=== PATIENT | female | born 1965 | race Hispanic/Latino ===

== ENCOUNTER 2025-01-20 17:00 | Emergency (ER) | payer OTHER, SELFPAY ==
--- NOTE | ~2025-01-20 | CT_ITS ---
EXAMINATION: CT diagnostic chest wo con DATE: 01/20/2025 20:24 INDICATION: Anterior rib pain, bilateral upper ribs TECHNIQUE: Computed tomography (CT) of the chest was performed with 100 mL Omnipaque-350 intravenous contrast. Automated exposure control and iterative reconstruction technique were employed. The dose-l ength product was 244.58 mGy-cm. COMPARISON: None. FINDINGS: CHEST: Thoracic aorta: No significant dilation or calcification. Lung parenchyma and airways: Lingular, medial right middle lobe, and medial right lower lobe atelecta sis/scar. Patent airways. Thoracic inlet, axillae and chest wall: 1 26 cm left thyroid hypodensity. No axillary lymphadenopathy . Mediastinum: No mass or lymphadenopathy. Heart and pericardium: Normal heart size. No pericardial effusion. Coronary artery calcifications: Absent. Pleura: No effusion or mass. Upper abdomen: No significant finding. Thoracic bones: Oblique sternal body fracture with one cortical width posterior displacement, possibl e cortical bridging. Trace substernal hematoma. Nondisplaced left fifth anterolateral rib fracture. IMPRESSION: Oblique, mildly displaced sternal body fracture of uncertain age,, possibly with healing change, yana elate for pain/tenderness. Nondisplaced, acute appearing left anterolateral fifth rib fracture. 1.6 cm left thyroid nodule, recommend nonemergent outpatient thyroid ultrasound for further character ization. Reviewed, dictated and finalized at location K. IMPRESSION: Oblique, mildly displaced sternal body fracture of uncertain age,, possibly wit h healing change, correlate for pain/tenderness. Nondisplaced, acute appearing left anterolateral fifth rib fracture. 1.6 cm left thyroid nodule, recommend nonemergent outpatient thyroid ultrasound for further characterization.
[2025-01-20 17:17] VITALS: BP 152/79; PULSE 90; RESP 18; TEMP 36.4; O2SAT 100
--- OUTSIDE RECORDS SUMMARY | 2025-01-20 19:17 | XMS_ITS | Encounter Summary ---
Author Organization [facility] Address [address] [place] [address] Care Team Providers Care Supervisor Mattress And Boxsprings Name Role Phone Alfredo Macias MD Primary Care Provider +1- [phone] Encounter Details Date Type Department Care Team (Late st Contact Info) Description 02/23/2000 Outpatient Historical HIS [facility] Srinivasa Phillips Outcome of delivery, single liveborn (Primary Dx) Social History Tobacco Use Types Packs/Day Years Used Date Smoking Tobacco: Never Assessed Comments Unknown Sex and Gender Information Value Date Recorded Sex Assigned at Not on file Legal Sex Female 3:54 AM TELEX OPERATOR Gender Identity Not on file Sexual Orientation Not on file documented as of this encounter Plan of Treatment Not on file documented as of this encounter Visit Diagnoses Diagnosis Outcome of delivery, single liveborn- Primary documented in this encounter Care Teams Supervisor Mattress And Boxsprings Relationship Specialty Start Date End Date Alfredo Macias MD PCP - General 09/18/02 documented as of this encounter
--- OUTSIDE RECORDS SUMMARY | 2025-01-20 19:17 | XMS_ITS | Encounter Summary ---
Author Organization [facility] Address [address] [place] [address] Care Team Providers Care Research Assistant Professor Name Role Phone Alfredo Macias MD Primary Care Provider [phone]- [phone] Encounter Details Date Type Department Care Team (Latest Contact Info) Description 03/21/2001 Outpatient Historical [facility] Joshua Lopez Supervision of other normal (Primary Dx) Social History Tobacco Use Types Packs/Day Years Used Date Smoking Tobacco: Never Assessed Comments Unknown Sex and Gender Information Value Date Recorded Sex Assigned at Not on file Legal Sex Female 3:54 AM OPERATIONS AND MAINTENANCE MANAGER Gender Identity Not on file Sexual Orientation Not on file documented as of this encounter Plan of Treatment Not on file documented as of this encounter Visit Diagnoses Diagnosis Supervision of other normal - Primary documented in this encounter Care Teams Research Assistant Professor Relationship Specialty Start Date End Date Alfredo Macias MD PCP - General 09/18/02 documented as of this encounter
--- OUTSIDE RECORDS SUMMARY | 2025-01-20 19:17 | XMS_ITS | Referral Summary ---
Author Organization [facility] Address [address] [place] [address] Care Team Providers Care Stamp Maker Name Role Phone Anel Menezes MD Primary Care Provider Guillaume Barroso Unavailable [phone] Altaf Sosa MD Unavailable [phone] Allergies Active Allergy Reactions Criticality Noted Date Comments Amoxicillin Swelling,Urticaria Medium 01/05/2019 Ibuprofen Stomach upset Low 01/04/2019 Medications rosuvastatin (CRESTOR) 40 mg tablet TAKE 1 TABLET BY MOUTH EVERY DAY 30 tablet 06/01/2023 Active Active Problems Problem Noted Date Diagnosed Date Spinal stenosis of lumbar re gion without neurogenic claudication 10/06/2022 Assessment & Plan (12/14/2023 10:45 PM CYLINDER INSPECTOR): Patient will continue with ibuprofen and/or tylenol, she is currently doing PT and will continue with PT, she has already seen neurosurgeon and also was referred to pain management. Patient has requested FMLA due to lower back pain, will fill out paper work when available. Follow up in 3 to 4 months, sooner if needed. DDD (degenerative disc disease), lumbar 10/06/20 Need for shingles vaccine 05/18/2022 Chronic midline low back pain without sciatica 0 07/08/2021 Assessment & Plan (09/15/2022 9:22 PM CYLINDER INSPECTOR): Patient with severe lower back pain, has failed chiropractic therapy, has failed anti-inflammatories and muscle relaxants, pain is getting worse, now is hurting bilateral hips as well. So will order an MRI of lumbar spine in place a referral for physical therapy. Prednisone and Robaxin given to start taking tomorrow. Depo- Medrol and Toradol given in office. Will follow-up in 4-6 weeks, sooner if needed. Patient was advised to go to ER if any symptoms of emergency noted such as weakness on legs, urinary incontinence, or numbness sensation in bilateral legs. Patient voices understanding and agreeable with plan. Assessment & Plan (05/18/2022 3:06 PM CDT): Pain worsening for the past year, has seen chiropractor and did not help. Has not done PT . Will start her on prednisone x 12 days taper and flexeril to take as needed. Risk, benefits and side effects of medication were discussed with patient in detail. All questions were answered to patient's satisfaction. Patient will go to PT and will let me know in 4 to 6 weeks how she is feeling. Obesity (BMI 30-39.9) 07/09/2018 Assessment & Plan (09/15/2022 9:22 PM CYLINDER INSPECTOR): Reduction in calorie intake is the fundamental way to achieve and maintain a healthy weight. Aerobic exercise, 30 minutes five times per week, is also helpful and importan. Structured programs such as Weight Watchers are very useful too. Avoid fad or radical diet programs, which are usually harmful and will not help you achieve sustained optimal health. Assessment & Plan (05/18/2022 3:07 PM CDT): Reduction in calorie intake is the fundamental way to achieve and maintain a healthy weight. Aerobic exercise, 30 minutes five times per week, is also helpful and importan. Structured programs such as Weight Watchers are very useful too. Avoid fad or radical diet programs, which are usually harmful and will not help you achieve sustained optimal health. Assessment & Plan (01/06/2019 10:44 AM CDT): BMI Follow-up includes: monitor exercise activity/diet. Assessment & Plan (01/04/2019 3:52 PM CDT): BMI Follow-up includes: nutrition counseling, exercise counseling and education provided. Mixed hyperlipidemia 07/09/2018 Vitamin D deficiency 05/24/2013 Allergic rhinitis 05/23/2013 Annual physical exam 12/17/2009 Overview (02/06/2021): Assessment & Plan (05/18/2022 3:07 PM CDT): Recommended tests and studies according to age reviewed with patient. For example colorectal cancer screening at age 45 and every 10 years if normal, mammograms starting at age 40 for females and prostate screening for males starting at age 50. Routine Pap smears every 2 or 3 years (if not high risk) for females. Blood tests such as: cholesterol testing, blood sugar testing, Immunizations reviewed with patient as well. The recommendations are for tetanus booster should be given every 10 years. Flu shot every fall, hepatitis A for high-risk, pneumonia vaccination after age 50, and zoster vaccines after age 60. Healthy lifestyle recommended, sleep at least 7 to 8 hours every night. Use sunscreen regularly, use seatbelt always. Dental hygiene. Follow up with dentist every 6 months. Avoid alcohol, tobacco and drugs. Avoid huma risk sexual behavior. Patient voiced understanding. Next preventive exam in one year. Immunizations Immunization Administration Dates Next Due Influenza, Trivalent, Recomb inant, Egg Free, Preservative Free, Antibiotic Free, IM (FLUBLOK) 09/03/2014 Influenza, Unspecified 12/14/2023(Deferr ed: Patient Refused),07/18/2023(Deferred: Patient Refused),09/15/2022(Deferred: Patient Refused),07/18/2022(Deferred: Patient Refused),05/18/2022(Deferred: Patient Refused),01/15/2022(Deferred: Patient Refused),02/06/2021(Deferred: Patient Refused),01/04/2019(Deferred: Patient Refused) Pfizer SARS-CoV-2 Monovalent Vaccination (12+ Yrs) PURPLE 04/18/2021,03/23/2021 TD Preservative Free 10/18/2005 Tdap 05/23/2013 ZOSTER Recombinant 05/18/2022 Social History Tobacco Use Types Packs/Day Years Used Date Smoking Tobacco: Never Smokeless Tobacco: Never Tobacco Cessation:Counseling Given: Not Answered AUDIT-C Answer Date Recorded Q1: How often do you have a drink containing alcohol? Never 10/21/2022 Q2: How many drinks containi ng alcohol do you have on a typical day when you are drinking? Patient does not drink Q3: How often do you have si x or more drinks on one occasion? Never 10/21/2022 PHQ-2 Answer Date Recorded PHQ-2 Total Score 0 12/14/2023 Comments No Sex and Gender Information Value Date Recorded Sex Assigned at Not on file Legal Sex Female 7:02 PM CYLINDER INSPECTOR Gender Identity Not on file Sexual Orientation Not on file Last Filed Vital Signs Vital Sign Reading Time Taken Comments Blood Pressure 118/72 12/14/2023 1:53 PM CYLINDER INSPECTOR Pulse 68 12/14/2023 1:53 PM CYLINDER INSPECTOR Temperature 36.6 C (97.8 F) 10/20/2023 5:11 PM CYLINDER INSPECTOR Respiratory Rate 16 12/14/2023 1:53 PM CYLINDER INSPECTOR Oxygen Saturation 98% 12/14/2023 1:53 PM CYLINDER INSPECTOR Inhaled Oxygen Concentration - - Weight 81.6 kg (179 lb 12.8 oz) 12/14/2023 1:53 PM CYLINDER INSPECTOR Height 157.5 cm (5' 2 ) 12/14/2023 1:53 PM CYLINDER INSPECTOR Body Mass Index 32.89 12/14/2023 1:53 PM CYLINDER INSPECTOR Plan of Treatment Not on file Procedures Procedure Name Priority Date/Time Associated Diagnosis Comments MAMMOGRAPHY Routine 09/16/2022 PAP AND HIGH RISK HPV, REFLEX TO GENOTYPING Routine 07/08/2021 4:27 PM CDT Encounter for well woman exam with routine gynecological exam COLONOSCOPY 04/17/2021 8:57 AM CDT from Last 3 Months or Most Recently Relevant to Health Maintenance Results * MAMMOGRAPHY (09/16/2022) Mammography Normal Impressions Kaylan Huff - 09/16/2022 See Scan us Historical Provider HEALTH MAINTENANCE Edited Result - Final * Pap and High Risk HPV, reflex to Genotyping (07/08/2021 4:27 PM CDT) Swab (Pap test) 07/08/2021 4 :27 PM CDT 07/12/2021 10:58 AM CDT Narrative PATHOLOGY [facility] - 07/15/2021 3:45 PM CDT [facility] results best viewed via link to PDF [address] [address] Tele: Lila Pena MD - Manager Of Planning CYTOLOGY REPORT Note to Patients: This report may contain a detailed description of human tissue sent by a health care provider to the laboratory for pathologic evaluation. The content of this report is essential for diagnosis and may provide important critical findings. This information may be unfamiliar to patients to review without a medical professional present. It is advised that the patient review this report in the presence of a health care provider who can answer questions and explain the details. Patient Name: MARISELA DONNELLY Address: [address] [place] [address], [place] [address]- Gender: F : 1965 (Age: 55) Service: Location: [facility] : [id number] Hospital #: [id number] Patient Type: [facility] SPECIMEN Taken: 07/08/2021 Reported: 07/15/2021 Physician(s): Anel Menezes M.D. FINAL DIAGNOSIS: Specimen Type: - ThinPrep Pap and HPV w/ reflex Genotyping Statement of Specimen Adequacy: Source: Cervical/Endocervical - Satisfactory for interpretation - Endocervical /Transformation Zone component present - Case screened using computer assisted imaging technology General Categorization: - Negative for intraepithelial lesion or malignancy Interpretation: - Shift in emma suggestive of Bacterial Vaginosis alld/07/15/2021 15:45 TRAVIS Flores(ASCP)EDVIN Report Reviewed and Electronically Signed By TRAVIS Flores(ASCAnabella)EDVIN Clerical Data Follow A; G0145 DIAGNOSIS COMMENT: Ancillary Testing: HPV High Risk Group (16, 18, 31, 33, 35, 39, 45, 51, 52, 56, 58, 59, 66 and 68) - Not Detected Reference Range: Not Detected This test was performed using the ZAN 4800 CLINICAL DIAGNOSIS AND HISTORY Menstrual History: Post-menopausal REPORT IMAGES AND/OR SCANNED DOCUMENTS ONLY VIEWABLE IN PDF FORMAT The Pap test is a screening test used to aid in the detection of cervical cancer and its precursors. It should not be the sole means by which malignant and premalignant lesions are diagnosed. Both false negative and false positive results may occur. It also has poor sensitivity for the detection of endometrial lesions and should not be used to evaluate suspected endometrial abnormalities. For these reasons it is most important to obtain Pap tests at regular intervals, as recommended by your physician or nurse practitioner. us Anel Menezes MD LAB CYTOLOGY ORDERABLE S Final Result PATHOLOGY [facility] Laboratory Receiving [address] [place] [address] * COLONOSCOPY (04/17/2021 8:57 AM CDT) Anatomical Region Laterality Modality Other Narrative Procedure Note Lor Erazo DO - 04/17/2021 8:57 AM CDT GI Lab Report Patient Name: Procedure Date: 04/17/2021 8:57 AM Date of : 1965 Admit Type: Outpatient Age: 55 Gender: Female Note Status: Finalized Attending MD: Lor Erazo D.O. Procedure: Colonoscopy Procedure Date: 04/17/2021 8:57:29 AM Indications: Screening for colorectal malignant neoplasm, Thisis the patient's first colonoscopy Providers: Lor Erazo D.O. Referring Physician: Anel Menezes M.D. Medicines: Monitored Anesthesia Care Complications: No immediate complications. Procedure: Pre-Anesthesia Assessment: - Prior to the procedure, a History and Physicalwas performed, and patient medications and allergieswere reviewed. The patient is competent. The risks and benefits of the procedure and the sedation optionsand risks were discussed with the patient. Allquestions were answered and informed consent was obtained. Patient identification and proposed procedure were verified by the physician, the nurse and the health associate in the endoscopy suite. Mental Status Examination: alert and oriented. AirwayExamination: normal oropharyngeal airway and neck mobility. Respiratory Examination: clear to auscultation. CV Examination: normal. Prophylactic Antibiotics: The patient does not require prophylactic antibiotics. Prior Anticoagulants: The patient has taken no previous anticoagulant or antiplatelet agents. ASA Grade Assessment: I - A normal, healthy patient.After reviewing the risks and benefits, the patient was deemed in satisfactory condition to undergo the procedure. The anesthesia plan was to use moderate sedation / analgesia (conscious sedation).Immediately prior to administration of medications, the patient was re-assessed for adequacy to receive sedatives.The heart rate, respiratory rate, oxygen saturations, blood pressure, adequacy of pulmonary ventilation,and response to care were monitored throughout the procedure. The physical status of the patient was re-assessed after the procedure. - The risks and benefits of the procedure and the sedation options and risks were discussed with the patient. All questions were answered and informed consent was obtained. The benefits, risks and alternatives of theprocedure and sedation were discussed and informed consentwas obtained. All questions were answered. Please referto the signed informed consent document in the medical record. The scope was passed under direct vision.The Colonoscope was introduced through the anus and advanced to the 5 cm into the ileum. Thecolonoscopy was performed without difficulty. The patient tolerated the procedure well. The quality of thebowel preparation was good. The bowel preparation usedwas SUPREP via split dose instruction. The quality ofthe bowel preparation was evaluated using the BBPS(Sassafras Bowel Preparation Scale) with scores of: RightColon = 2 (minor amount of residual staining, smallfragments of stool and/or opaque liquid, but mucosa seenwell), Transverse Colon = 3 (entire mucosa seen well withno residual staining, small fragments of stool oropaque liquid) and Left Colon = 3 (entire mucosa seen well with no residual staining, small fragments of stoolor opaque liquid). The total BBPS score equals 8. The quality of the bowel preparation was good. BowelPrep was adminstered using a split dose. Findings: The perianal and digital rectal examinations were normal. Two semi-pedunculated polyps were found in the rectum. The polypswere 3 to 4 mm in size. These polyps were removed with a jumbo cold forceps. Resection and retrieval were complete. Estimated blood loss wasminimal. Estimated Blood Loss: Estimated blood loss was minimal. Impression: - Two 3 to 4 mm polyps in the rectum, removed witha jumbo cold forceps. Resected and retrieved. Recommendation: - Repeat colonoscopy date to be determined after pending pathology results are reviewed for surveillance based on pathology results. - Await pathology results. Procedure Code(s): --- Professional --- 03861 Diagnosis Code(s): --- Professional --- Z12.11 K62.1 CPT copyright 2019 [employer]. All rights reserved. Lor Erazo D.O. 04/17/2021 9:41:12 AM This report has been signed electronically. 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
--- OUTSIDE RECORDS SUMMARY | 2025-01-20 19:17 | XMS_ITS | Encounter Summary ---
Author Organization [employer] [facility] Address [address] [place] [address] Care Team Providers Care Torpedo Specialist Name Role Phone Alfredo Macias MD Primary Care Provider +1- [phone] Encounter Details Date Type Department Care Team (Late st Contact Info) Description 05/09/2001 Outpatient Historical HIS [facility] Alfredo Macias MD [address] [place] [address] [place] [address] Supervision of other normal (Primary Dx) Social History Tobacco Use Types Packs/Day Years Used Date Smoking Tobacco: Never Assessed Comments Unknown Sex and Gender Information Value Date Recorded Sex Assigned at Not on file Legal Sex Female 3:54 AM FOOD SERVICE DIRECTOR Gender Identity Not on file Sexual Orientation Not on file documented as of this encounter Plan of Treatment Not on file documented as of this encounter Visit Diagnoses Diagnosis Supervision of other normal - Primary documented in this encounter Care Teams Torpedo Specialist Relationship Specialty Start Date End Date Alfredo Macias MD PCP - General 09/18/02 documented as of this encounter
--- OUTSIDE RECORDS SUMMARY | 2025-01-20 19:17 | XMS_ITS | Encounter Summary ---
Author Organization [facility] Address [address] [place] [address] Care Team Providers Care Teasel Setter Name Role Phone Alfredo Macias MD Primary Care Provider [phone]- [phone] Encounter Details Date Type Department Care Team (Latest Contact Info) Description 02/08/2001 Outpatient Historical HIS [facility] ABIMAEL Price, Luis E Garza MD [address] [place], [place] [id number] state, incidental (Primary Dx) Social History Tobacco Use Types Packs/Day Years Used Date Smoking Tobacco: Never Assessed Comments Unknown Sex and Gender Information Value Date Recorded Sex Assigned at Not on file Legal Sex Female 3:54 AM DIAL SCREW ASSEMBLER Gender Identity Not on file Sexual Orientation Not on file documented as of this encounter Plan of Treatment Not on file documented as of this encounter Visit Diagnoses Diagnosis state, incidental- Primary documented in this encounter Care Teams Teasel Setter Relationship Specialty Start Date End Date Alfredo Macias MD PCP - General 09/18/02 documented as of this encounter
--- OUTSIDE RECORDS SUMMARY | 2025-01-20 19:17 | XMS_ITS | Encounter Summary ---
Author Organization [facility] Address [address] [place] [address] Care Team Providers Care Meat Soaker Name Role Phone Alfredo Macias MD Primary Care Provider [phone]- [phone] Encounter Details Date Type Department Care Team (Late st Contact Info) Description 06/27/2001 Outpatient Historical [facility] [address] [place] [address] Alfredo Macias MD [address] [place] [id number] Social History Tobacco Use Types Packs/Day Years Used Date Smoking Tobacco: Never Assessed Comments Unknown Sex and Gender Information Value Date Recorded Sex Assigned at Not on file Legal Sex Female 3:54 AM COUNSEL Gender Identity Not on file Sexual Orientation Not on file documented as of this encounter Plan of Treatment Not on file documented as of this encounter Visit Diagnoses Not on filedocumented in this encounter Care Teams Meat Soaker Relationship Specialty Start Date End Date Alfredo Macias MD PCP - General 09/18/02 documented as of this encounter
--- OUTSIDE RECORDS SUMMARY | 2025-01-20 19:17 | XMS_ITS | Encounter Summary ---
Author Organization [facility] Address [address] [place] [address] Care Team Providers Care Body Recall Instructor Name Role Phone Alfredo Macias MD Primary Care Provider +1- [phone] Encounter Details Date Type Department Care Team (Late st Contact Info) Description 07/04/2001 Outpatient Historical HIS [facility] Alfredo Macias MD [address] [facility] [address] [place] [address] Supervision of other normal (Primary Dx) Social History Tobacco Use Types Packs/Day Years Used Date Smoking Tobacco: Never Assessed Comments Unknown Sex and Gender Information Value Date Recorded Sex Assigned at Not on file Legal Sex Female 3:54 AM INTELLIGENCE ANALYST Gender Identity Not on file Sexual Orientation Not on file documented as of this encounter Plan of Treatment Not on file documented as of this encounter Visit Diagnoses Diagnosis Supervision of other normal - Primary documented in this encounter Care Teams Body Recall Instructor Relationship Specialty Start Date End Date Alfredo Macias MD PCP - General 09/18/02 documented as of this encounter
--- OUTSIDE RECORDS SUMMARY | 2025-01-20 19:17 | XMS_ITS | Encounter Summary ---
Author Organization [id number] Address [address] [place] [address] Care Team Providers Care Production Recorder Name Role Phone Alfredo Macias MD Primary Care Provider +1- [phone] Encounter Details Date Type Department Care Team (Late st Contact Info) Description 06/13/2001 Outpatient Historical HIS [facility] Alfredo Macias MD [address] [facility] [address] [place] [address] Supervision of other normal (Primary Dx) Social History Tobacco Use Types Packs/Day Years Used Date Smoking Tobacco: Never Assessed Comments Unknown Sex and Gender Information Value Date Recorded Sex Assigned at Not on file Legal Sex Female 3:54 AM TAKER OUT Gender Identity Not on file Sexual Orientation Not on file documented as of this encounter Plan of Treatment Not on file documented as of this encounter Visit Diagnoses Diagnosis Supervision of other normal - Primary documented in this encounter Care Teams Production Recorder Relationship Specialty Start Date End Date Alfredo Macias MD PCP - General 09/18/02 documented as of this encounter
--- OUTSIDE RECORDS SUMMARY | 2025-01-20 19:17 | XMS_ITS | Encounter Summary ---
Author Organization [facility] Address 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
--- OUTSIDE RECORDS SUMMARY | 2025-01-20 19:17 | XMS_ITS | Encounter Summary ---
Author Organization [facility] Address [address] [place] [address] Care Team Providers Care Supervisor Ticket Sales Name Role Phone Alfredo Macias MD Primary Care Provider +1- [phone] Encounter Details Date Type Department Care Team (Late st Contact Info) Description 02/08/2001 Outpatient Historical [facility] [address] [place] [address] Srinivasa Phillips Social History Tobacco Use Types Packs/Day Years Used Date Smoking Tobacco: Never Assessed Comments Unknown Sex and Gender Information Value Date Recorded Sex Assigned at Not on file Legal Sex Female 3:54 AM SAMPLE SAWYER Gender Identity Not on file Sexual Orientation Not on file documented as of this encounter Plan of Treatment Not on file documented as of this encounter Visit Diagnoses Not on filedocumented in this encounter Care Teams Supervisor Ticket Sales Relationship Specialty Start Date End Date Alfredo Macias MD PCP - General 09/18/02 documented as of this encounter
--- OUTSIDE RECORDS SUMMARY | 2025-01-20 19:17 | XMS_ITS | Encounter Summary ---
Author Organization [facility] Address [address] [place] [address] Care Team Providers Care Database Technician Name Role Phone Alfredo Macias MD Primary Care Provider +1- [phone] Encounter Details Date Type Department Care Team (Latest Contact Info) Description 11/07/1999 Outpatient Historical HIS [facility] [place] Gu[place] Other current maternal conditions classifiable elsewhere, antepartum (Primary Dx) Social History Tobacco Use Types Packs/Day Years Used Date Smoking Tobacco: Never Assessed Comments Unknown Sex and Gender Information Value Date Recorded Sex Assigned at Not on file Legal Sex Female 3:54 AM 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
--- OUTSIDE RECORDS SUMMARY | 2025-01-20 19:17 | XMS_ITS | Encounter Summary ---
Author Organization [facility] Address 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
--- OUTSIDE RECORDS SUMMARY | 2025-01-20 19:17 | XMS_ITS | Encounter Summary ---
Author Organization [employer] [facility] Address [address] [place] [address] Care Team Providers Care Sap Security Architect Name Role Phone Alfredo Macias MD Primary Care Provider +1- [phone] Encounter Details Date Type Department Care Team (Late st Contact Info) Description 04/25/2001 Outpatient Historical [facility] Alfredo Macias MD [address] [facility] [address] [place] [address] Supervision of other normal (Primary Dx) Social History Tobacco Use Types Packs/Day Years Used Date Smoking Tobacco: Never Assessed Comments Unknown Sex and Gender Information Value Date Recorded Sex Assigned at Not on file Legal Sex Female 3:54 AM ORTHOTIST OR PROSTHETIST Gender Identity Not on file Sexual Orientation Not on file documented as of this encounter Plan of Treatment Not on file documented as of this encounter Visit Diagnoses Diagnosis Supervision of other normal - Primary documented in this encounter Care Teams Sap Security Architect Relationship Specialty Start Date End Date Alfredo Macias MD PCP - General 09/18/02 documented as of this encounter
--- OUTSIDE RECORDS SUMMARY | 2025-01-20 19:17 | XMS_ITS | Encounter Summary ---
Author Organization [facility] Address [address] [place] [address] Care Team Providers Care Transportation Modeler Name Role Phone Alfredo Macias MD Primary Care Provider +1- [phone] Encounter Details Date Type Department Care Team (Late st Contact Info) Description 04/25/2001 Outpatient Historical [facility] [address] [place] [address] Alfredo Macias MD [address] [place] [address] Social History Tobacco Use Types Packs/Day Years Used Date Smoking Tobacco: Never Assessed Comments Unknown Sex and Gender Information Value Date Recorded Sex Assigned at Not on file Legal Sex Female 3:54 AM PRINTED CIRCUIT LAYOUT TAPER Gender Identity Not on file Sexual Orientation Not on file documented as of this encounter Plan of Treatment Not on file documented as of this encounter Visit Diagnoses Not on filedocumented in this encounter Care Teams Transportation Modeler Relationship Specialty Start Date End Date Alfredo Macias MD PCP - General 09/18/02 documented as of this encounter
--- OUTSIDE RECORDS SUMMARY | 2025-01-20 19:17 | XMS_ITS | Encounter Summary ---
Author Organization [facility] Address [address] [place] [address] Care Team Providers Care Tearoom Hostess Name Role Phone Alfredo Macias MD Primary Care Provider +1- [phone] Encounter Details Date Type Department Care Team (Late st Contact Info) Description 05/23/2001 Outpatient Historical [facility] [address] [place] [address] Alfredo Macias MD [address] [place] [phone] Social History Tobacco Use Types Packs/Day Years Used Date Smoking Tobacco: Never Assessed Comments Unknown Sex and Gender Information Value Date Recorded Sex Assigned at Not on file Legal Sex Female 3:54 AM SCIENTIFIC HELPER Gender Identity Not on file Sexual Orientation Not on file documented as of this encounter Plan of Treatment Not on file documented as of this encounter Visit Diagnoses Not on filedocumented in this encounter Care Teams Tearoom Hostess Relationship Specialty Start Date End Date Alfredo Macias MD PCP - General 09/18/02 documented as of this encounter
--- OUTSIDE RECORDS SUMMARY | 2025-01-20 19:17 | XMS_ITS | Encounter Summary ---
Author Organization [facility] Address [address] [place] [address] Care Team Providers Care Kids Club Attendant Name Role Phone Alfredo Macias MD Primary Care Provider +1- [phone] Encounter Details Date Type Department Care Team (Late st Contact Info) Description 03/22/2000 Outpatient Historical HIS [facility] Srinivasa Phillips Supervision of other normal (Primary Dx) Social History Tobacco Use Types Packs/Day Years Used Date Smoking Tobacco: Never Assessed Comments Unknown Sex and Gender Information Value Date Recorded Sex Assigned at Not on file Legal Sex Female 3:54 AM FLIGHT SUPERINTENDENT Gender Identity Not on file Sexual Orientation Not on file documented as of this encounter Plan of Treatment Not on file documented as of this encounter Visit Diagnoses Diagnosis Supervision of other normal - Primary documented in this encounter Care Teams Kids Club Attendant Relationship Specialty Start Date End Date Alfredo Macias MD PCP - General 09/18/02 documented as of this encounter
--- OUTSIDE RECORDS SUMMARY | 2025-01-20 19:17 | XMS_ITS | Encounter Summary ---
Author Organization [employer] [facility] Address [address] [place] [address] Care Team Providers Care Firestopper Technician Name Role Phone Alfredo Macias MD Primary Care Provider +1- [phone] Encounter Details Date Type Department Care Team (Late st Contact Info) Description 02/29/2000 Outpatient Historical [facility] Kike Lowe, [address] [facility] [address] [place] [address] [place], Authorized P NO ADDRESS ON FILE Contact dermatitis and other eczema, due to unspecified cause (Primary Dx) Social History Tobacco Use Types Packs/Day Years Used Date Smoking Tobacco: Never Assessed Comments Unknown Sex and Gender Information Value Date Recorded Sex Assigned at Not on file Legal Sex Female 3:54 AM EXERCISER HORSE Gender Identity Not on file Sexual Orientation Not on file documented as of this encounter Plan of Treatment Not on file documented as of this encounter Visit Diagnoses Diagnosis Contact dermatitis and other eczema, due to unspecified cause- Primary documented in this encounter Care Teams Firestopper Technician Relationship Specialty Start Date End Date Alfredo Macias MD PCP - General 09/18/02 documented as of this encounter
--- OUTSIDE RECORDS SUMMARY | 2025-01-20 19:17 | XMS_ITS | Encounter Summary ---
Author Organization [facility] Address 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
--- OUTSIDE RECORDS SUMMARY | 2025-01-20 19:17 | XMS_ITS | Clinical Summary ---
Author Organization [facility] Address [address] [place] [address] Care Team Providers Care Hot Strip Mill Supervisor Name Role Phone Anel Menezes MD Primary Care Provider Guillaume Barroso Unavailable [phone] Altaf Sosa MD Unavailable [phone] Allergies Active Allergy Reactions Criticality Noted Date Comments Amoxicillin Swelling,Urticaria Medium 01/05/2019 Ibuprofen Stomach upset Low 01/04/2019 Medications rosuvastatin (CRESTOR) 40 mg tablet TAKE 1 TABLET BY MOUTH EVERY DAY 30 tablet 06/01/2023 Active Active Problems Problem Noted Date Diagnosed Date Spinal stenosis of lumbar re gion without neurogenic claudication 10/06/2022 Assessment & Plan (12/14/2023 10:45 PM PROFESSOR OF BUSINESS ADMINISTRATION): Patient will continue with ibuprofen and/or tylenol, [...] 07/08/2021 Assessment & Plan (09/15/2022 9:22 PM PROFESSOR OF BUSINESS ADMINISTRATION): Patient with severe lower back pain, has [...] 07/09/2018 Assessment & Plan (09/15/2022 9:22 PM PROFESSOR OF BUSINESS ADMINISTRATION): Reduction in calorie intake is the fundamental [...] Free 10/18/2005 Tdap 05/23/2013 ZOSTER Recombinant 05/18/2022 Medical History Medical History Date Comments Screening for colon cancer Miscarriage Fibroid Mixed hyperlipidemia Vitamin D deficiency Spinal stenosis of lumbar region without neuroge dona claudication DDD (degenerative disc disease), lumbar Family History Medical History Relation Name Comments Diabetes type II Father Diabetes me llitus type 2; Hypertension Mother Hypertension; C ause of : Hypertension Colon cancer Neg Hx Relation Name Status Comments Father Mother Social History Tobacco Use Types Packs/Day Years [...] on file Legal Sex Female 7:02 PM PROFESSOR OF BUSINESS ADMINISTRATION Gender Identity Not on file Sexual Orientation Not on file Obstetrics History Last Filed Vital Signs Vital Sign Reading Time Taken Comments Blood Pressure 118/72 12/14/2023 1:53 PM PROFESSOR OF BUSINESS ADMINISTRATION Pulse 68 12/14/2023 1:53 PM PROFESSOR OF BUSINESS ADMINISTRATION Temperature 36.6 C (97.8 F) 10/20/2023 5:11 PM PROFESSOR OF BUSINESS ADMINISTRATION Respiratory Rate 16 12/14/2023 1:53 PM PROFESSOR OF BUSINESS ADMINISTRATION Oxygen Saturation 98% 12/14/2023 1:53 PM PROFESSOR OF BUSINESS ADMINISTRATION Inhaled Oxygen Concentration - - Weight 81.6 kg (179 lb 12.8 oz) 12/14/2023 1:53 PM PROFESSOR OF BUSINESS ADMINISTRATION Height 157.5 cm (5' 2 ) 12/14/2023 1:53 PM PROFESSOR OF BUSINESS ADMINISTRATION Body Mass Index 32.89 12/14/2023 1:53 PM PROFESSOR OF BUSINESS ADMINISTRATION Plan of Treatment Health Maintenance Due Date Last Done Comments Hepatitis C Screening 1965 Hepatitis B Screening 1985 Cervical Cancer Screening 07/08/2022 07/08/2021 Regular Well Visit/Exam 18-64 05/18/2023 05/18/2022, 02/06/2021 DTaP/Tdap/Td Vaccine (2 - Td or Tdap) 05/23/2023 05/23/2013, 10/18/2005 Covid-19 Vaccine (3 - season) 2024 04/18/2021, 03/23/2021 Depression Screening 12/14/2024 12/14/2023, 12/14/2023, 09/15/2022, Additional history exists Breast Cancer Screening-Mammogram 06/29/2025 06/29/2024, 06/29/2024, 09/16/2022, Additional history exists Colon Cancer Screening-Colonoscopy 04/17/2031 04/17/2021, 04/17/2021 Influenza Vaccine Discontinued 09/03/2014 Colon Cancer Screening-CT Colonography Discontinued 04/17/2021, 04/17/2021 Colon Cancer Screening-DNA Stool Discontinued 04/17/2021, 04/17/2021 Colon Cancer Screening-FIT Discontinued 04/17/2021, Colon Cancer Screening-Sigmoidoscopy Discontinued 04/17/2021, 04/17/2021 Zoster Vaccine Discontinued 05/18/2022 Pneumococcal vaccine <65 Aged Out No longer eligible based on patient's age to complete this topic Procedures Procedure Name Priority Date/Time Associated Diagnosis Comments MAMMOGRAPHY Routine 09/16/2022 PAP AND HIGH RISK HPV, REFLEX TO GENOTYPING Routine 07/08/2021 4:27 PM CDT Encounter for well woman exam with routine gynecological exam COLONOSCOPY 04/17/2021 8:57 AM CDT from Last 3 Months or Most Recently Relevant to Health Maintenance Results * MAMMOGRAPHY (09/16/2022) Mammography Normal Impressions Daria Kaylan - 09/16/2022 See Scan us Historical Provider HEALTH MAINTENANCE Edited Result - Final * Pap and High Risk HPV, reflex to Genotyping (07/08/2021 4:27 PM CDT) Swab (Pap test) 07/08/2021 4 :27 PM CDT 07/12/2021 10:58 AM CDT Narrative PATHOLOGY [facility] - 07/15/2021 3:45 PM CDT EPIC results best viewed via link to PDF [address] [address] Tele: Lila Pena MD - Microbiology Soil Scientist CYTOLOGY REPORT Note to Patients: This report [...] the details. Patient Name: MARISELA DONNELLY Address: [address] [place] [address], [place] [address]- Gender: F : 1965 (Age: 55) Service: Location: [facility] : [id number] [facility] #: [id number] Patient Type: [facility] Taken: 07/08/2021 Reported: 07/15/2021 Physician(s): Anel [...] Report Reviewed and Electronically Signed By TRAVIS Flores(ASCP)EDVIN Clerical Data Follow A; [id number] DIAGNOSIS COMMENT: [...] LAB CYTOLOGY ORDERABLE S Final Result PATHOLOGY [facility] Laboratory Receiving [address] [place] [address] * COLONOSCOPY (04/17/2021 8:57 AM CDT) Anatomical Region Laterality Modality Other Narrative Procedure Note Lor Erazo DO - 04/17/2021 8:57 AM CDT [facility] GI Lab Report Patient Name: Procedure Date: [...] by the physician, the nurse and the dowel sander operator in the endoscopy suite. Mental Status Examination: [...] ofthe bowel preparation was evaluated using the BBPS([place] Bowel Preparation Scale) with scores of: RightColon [...] pathology results. Procedure Code(s): --- Professional --- 11269 Diagnosis Code(s): --- Professional --- Z12.11 K62.1 CPT copyright 2019 [employer]. All rights reserved. Lor Erazo D.O. 04/17/2021 9:41:12 AM This report has been signed electronically. Number of Addenda: 0 Note Initiated On: 04/17/2021 8:57 AM us Lor Erazo DO ENDOSCOPY PROCEDURES F inal Result from Last 3 Months or Most Recently Relevant to Health Maintenance Insurance [employer] OOS BLUE ACCESS OOS ANTHEM ACCESS CHOICE Advance Directives For more information, please contact: [phone] Documents on File Type Date Recorded Patient Heating Worker Expl anation ADVANCE DIRECTIVE 02/16/2018 8:59 PM ADVANCE DIRECTIVE 02/16/2018 Advance Di rective Checklist * Full Code (Latest Code Status on File) Date Activated Date Inactivated Comments 04/17/2021 8:02 AM 04/17/2021 3:29 PM Care Teams Hot Strip Mill Supervisor Relationship Specialty Start Date End Date Anel Menezes MD [address] [facility] [place] [address] PCP - General 01/15/17 Guillaume Barroso PA [address] [facility] [place] [address] Physician Police District Switchboard Operator Neurosurgery 10/09/22 Altaf Sosa MD [address] [place] [address] [id number] Consulting Physician Neurosurgery 10/09/22
--- OUTSIDE RECORDS SUMMARY | 2025-01-20 19:17 | XMS_ITS | Continuity of Care Document ---
Author Organization [facility] Address [address] [place] [address] [address] [place] [address] Phone Care Team Providers Care Metal Furniture Polisher Name Role Phone Lee Mayorga MD Unavailable Unavailable Procedures Procedure Date EYE EXAM & TREATMENT EYE PHOTOGRAPHY REFRACTION Advance Directives Directive Yes / No Effective Date File Name No Information Encounters Encounter Description Practice Location Reason(s) For Visit Diagnoses Date Provider Providers Copied on Encounter [facility], [address] [place] [address], [address] [place] [address], tel:[phone] [facility] [address] No Information [address] Mukesh [address]. [address] [place] [address], [address], [place], [place], [facility], . tel:[phone] Referring Provider: Lee Garza, [address] [place] [address] [address], [place], [place], [facility]. tel:[phone] Family History Family Member Type Diagnosis Age At Onset No Information Payers Payer name Insurance type Covered green party ID Authoriza tihodan(s) [facility] [id number] Social History Type Description Quantity Date Captured Comments Sex Female Smoking Status No Information Chief Complaint And Reason For Visit No Information Reason For Referral Reason For Referral No Information History Of Present Illness Encounter Date Complaint History Of Prese nt Illness No Information Functional Status Date Functional Assessmen t No Information Instructions Date Instruction Additional Infor mation No Information Assessments Type Assessment Date No Information Patient Care Teams Name Effective Dates (start - stop) Status Members No Information
--- OUTSIDE RECORDS SUMMARY | 2025-01-20 19:17 | XMS_ITS | Encounter Summary ---
Author Organization [facility] Address [address] [place] [address] Care Team Providers Care Wood Tile Installation Helper Name Role Phone Alfredo Macias MD Primary Care Provider +1- [phone] Encounter Details Date Type Department Care Team (Late st Contact Info) Description 06/27/2001 Outpatient Historical [facility] Alfredo Macias MD [address] [place] [address] [place] [address] Supervision of other normal (Primary Dx) Social History Tobacco Use Types Packs/Day Years Used Date Smoking Tobacco: Never Assessed Comments Unknown Sex and Gender Information Value Date Recorded Sex Assigned at Not on file Legal Sex Female 3:54 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
--- OUTSIDE RECORDS SUMMARY | 2025-01-20 19:17 | XMS_ITS | Encounter Summary ---
Author Organization [facility] Address [address] [place] [address] Care Team Providers Care Admittance Attendant Name Role Phone Alfredo Macias MD Primary Care Provider +1- [phone] Encounter Details Date Type Department Care Team (Latest Contact Info) Description 12/08/1999 Outpatient Historical HIS [facility] Price, Luis E Garza MD [address] [place], [place] [id number] Supervision of other normal (Primary Dx) Social History Tobacco Use Types Packs/Day Years Used Date Smoking Tobacco: Never Assessed Comments Unknown Sex and Gender Information Value Date Recorded Sex Assigned at Not on file Legal Sex Female 3:54 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
--- OUTSIDE RECORDS SUMMARY | 2025-01-20 19:17 | XMS_ITS | Encounter Summary ---
Author Organization [employer] [facility] Address [address] [place] [address] Care Team Providers Care Family Service Assistant Name Role Phone Alfredo Macias MD Primary Care Provider +1- [phone] Encounter Details Date Type Department Care Team (Late st Contact Info) Description 06/06/2001 Outpatient Historical [facility] Alfredo Macias MD [address] [place] [address] [place] [address] Supervision of other normal (Primary Dx) Social History Tobacco Use Types Packs/Day Years Used Date Smoking Tobacco: Never Assessed Comments Unknown Sex and Gender Information Value Date Recorded Sex Assigned at Not on file Legal Sex Female 3:54 AM EXTRA GANG SUPERVISOR Gender Identity Not on file Sexual Orientation Not on file documented as of this encounter Plan of Treatment Not on file documented as of this encounter Visit Diagnoses Diagnosis Supervision of other normal - Primary documented in this encounter Care Teams Family Service Assistant Relationship Specialty Start Date End Date Alfredo Macias MD PCP - General 09/18/02 documented as of this encounter
--- OUTSIDE RECORDS SUMMARY | 2025-01-20 19:17 | XMS_ITS | Encounter Summary ---
Author Organization [facility] Address [address] [place] [address] Care Team Providers Care Special Officer Automat Name Role Phone Alfredo Macias MD Primary Care Provider +1- [phone] Encounter Details Date Type Department Care Team (Late st Contact Info) Description 01/22/2000 Outpatient Historical HIS [facility] Srinivasa Phillips Outcome of delivery, single liveborn (Primary Dx) Social History Tobacco Use Types Packs/Day Years Used Date Smoking Tobacco: Never Assessed Comments Unknown Sex and Gender Information Value Date Recorded Sex Assigned at Not on file Legal Sex Female 3:54 AM SATELLITE MANAGER Gender Identity Not on file Sexual Orientation Not on file documented as of this encounter Plan of Treatment Not on file documented as of this encounter Visit Diagnoses Diagnosis Outcome of delivery, single liveborn- Primary documented in this encounter Care Teams Special Officer Automat Relationship Specialty Start Date End Date Alfredo Macias MD PCP - General 09/18/02 documented as of this encounter
--- OUTSIDE RECORDS SUMMARY | 2025-01-20 19:17 | XMS_ITS | Encounter Summary ---
Author Organization [facility] Address [address] [place] [address] Care Team Providers Care Revenue Analyst Name Role Phone Alfredo Macias MD Primary Care Provider +1- [phone] Encounter Details Date Type Department Care Team (Late st Contact Info) Description 02/28/2001 Outpatient Historical [facility] [address] [place] [address] Srinivasa Phillips Social History Tobacco Use Types Packs/Day Years Used Date Smoking Tobacco: Never Assessed Comments Unknown Sex and Gender Information Value Date Recorded Sex Assigned at Not on file Legal Sex Female 3:54 AM LOSS PREVENTION MANAGER Gender Identity Not on file Sexual Orientation Not on file documented as of this encounter Plan of Treatment Not on file documented as of this encounter Visit Diagnoses Not on filedocumented in this encounter Care Teams Revenue Analyst Relationship Specialty Start Date End Date Alfredo Macias MD PCP - General 09/18/02 documented as of this encounter
--- OUTSIDE RECORDS SUMMARY | 2025-01-20 19:17 | XMS_ITS | Encounter Summary ---
Author Organization [facility] Address 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
--- OUTSIDE RECORDS SUMMARY | 2025-01-20 19:17 | XMS_ITS | Encounter Summary ---
Author Organization [facility] Address [address] [place] [address] Care Team Providers Care Stem Processing Machine Operator Name Role Phone Alfredo Macias MD Primary Care Provider +1- [phone] Encounter Details Date Type Department Care Team (Late st Contact Info) Description 05/09/2001 Outpatient Historical 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
--- OUTSIDE RECORDS SUMMARY | 2025-01-20 19:17 | XMS_ITS | Encounter Summary ---
Author Organization [facility] Address [address] [place] [address] Care Team Providers Care Regional Clinical Research Associate Name Role Phone Alfredo Macias MD Primary Care Provider +1- [phone] Encounter Details Date Type Department Care Team (Late st Contact Info) Description 05/09/2001 Outpatient Historical [facility] Social History Tobacco Use Types Packs/Day Years Used Date Smoking Tobacco: Never Assessed Comments Unknown Sex and Gender Information Value Date Recorded Sex Assigned at Not on file Legal Sex Female 3:54 AM SERVER Gender Identity Not on file Sexual Orientation Not on file documented as of this encounter Plan of Treatment Not on file documented as of this encounter Visit Diagnoses Not on filedocumented in this encounter Care Teams Regional Clinical Research Associate Relationship Specialty Start Date End Date Alfredo Macias MD PCP - General 09/18/02 documented as of this encounter
--- OUTSIDE RECORDS SUMMARY | 2025-01-20 19:17 | XMS_ITS | Encounter Summary ---
Author Organization [facility] Address [address] [place] [address] Care Team Providers Care Project Architect Name Role Phone Alfredo Macias MD Primary Care Provider +1- [phone] Encounter Details Date Type Department Care Team (Latest Contact Info) Description 12/29/1999 Outpatient Historical [facility] Other screening (Primary Dx) Social History Tobacco Use Types Packs/Day Years Used Date Smoking Tobacco: Never Assessed Comments Unknown Sex and Gender Information Value Date Recorded Sex Assigned at Not on file Legal Sex Female 3:54 AM REGIONAL DIRECTOR Gender Identity Not on file Sexual Orientation Not on file documented as of this encounter Plan of Treatment Not on file documented as of this encounter Visit Diagnoses Diagnosis Other screening- Primary Other specified screening documented in this encounter Care Teams Project Architect Relationship Specialty Start Date End Date Alfredo Macias MD PCP - General 09/18/02 documented as of this encounter
--- OUTSIDE RECORDS SUMMARY | 2025-01-20 19:17 | XMS_ITS | Encounter Summary ---
Author Organization [facility] Address [address] [place] [address] Care Team Providers Care Underwriting Service Representative Name Role Phone Alfredo Macias MD Primary Care Provider +1- [phone] Encounter Details Date Type Department Care Team (Late st Contact Info) Description 07/04/2001 Outpatient Historical [facility] [address] [place] [address] Alfredo Macias MD [address] [place] [phone] Social History Tobacco Use Types Packs/Day Years Used Date Smoking Tobacco: Never Assessed Comments Unknown Sex and Gender Information Value Date Recorded Sex Assigned at Not on file Legal Sex Female 3:54 AM ACADEMIC ASSOCIATE Gender Identity Not on file Sexual Orientation Not on file documented as of this encounter Plan of Treatment Not on file documented as of this encounter Visit Diagnoses Not on filedocumented in this encounter Care Teams Underwriting Service Representative Relationship Specialty Start Date End Date Alfredo Macias MD PCP - General 09/18/02 documented as of this encounter
--- OUTSIDE RECORDS SUMMARY | 2025-01-20 19:17 | XMS_ITS | Encounter Summary ---
Author Organization [employer] [facility] Address 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
--- OUTSIDE RECORDS SUMMARY | 2025-01-20 19:17 | XMS_ITS | Encounter Summary ---
Author Organization [facility] Address 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
--- OUTSIDE RECORDS SUMMARY | 2025-01-20 19:17 | XMS_ITS | Encounter Summary ---
Author Organization [facility] Address [address] [place] [address] Care Team Providers Care Station Engineer Main Line Name Role Phone Alfredo Macias MD Primary Care Provider +1- [phone] Encounter Details Date Type Department Care Team (Late st Contact Info) Description 02/08/2001 Outpatient Historical [facility] [address] [place] [address] Srinivasa Phillips Social History Tobacco Use Types Packs/Day Years Used Date Smoking Tobacco: Never Assessed Comments Unknown Sex and Gender Information Value Date Recorded Sex Assigned at Not on file Legal Sex Female 3:54 AM DIRECTOR EDUCATIONAL RADIO Gender Identity Not on file Sexual Orientation Not on file documented as of this encounter Plan of Treatment Not on file documented as of this encounter Visit Diagnoses Not on filedocumented in this encounter Care Teams Station Engineer Main Line Relationship Specialty Start Date End Date Alfredo Macias MD PCP - General 09/18/02 documented as of this encounter
--- OUTSIDE RECORDS SUMMARY | 2025-01-20 19:17 | XMS_ITS | Encounter Summary ---
Author Organization [facility] Address 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
--- OUTSIDE RECORDS SUMMARY | 2025-01-20 19:17 | XMS_ITS | Encounter Summary ---
Author Organization [employer] [facility] Address [address] [place] [address] Care Team Providers Care Audio Visual Aide Name Role Phone Alfredo Macias MD Primary Care Provider +1- [phone] Encounter Details Date Type Department Care Team (Late st Contact Info) Description 02/17/2000 Inpatient Historical [facility] PATIENT IN A BED Tonya Lua MD [address] [place] [address] Vi Rand MD [address] [facility] [address] [place] [address] Previous delivery, delivered, with or without mention of antepartum condition (Primary Dx) Social History Tobacco Use Types Packs/Day Years Used Date Smoking Tobacco: Never Assessed Comments Unknown Sex and Gender Information Value Date Recorded Sex Assigned at Not on file Legal Sex Female 3:54 AM TRANSFER CLERK Gender Identity Not on file Sexual Orientation Not on file documented as of this encounter Plan of Treatment Not on file documented as of this encounter Visit Diagnoses Diagnosis Previous delivery, delivered, with or without mention of antepartum condition- Primary documented in this encounter Care Teams Audio Visual Aide Relationship Specialty Start Date End Date Alfredo Macias MD PCP - General 09/18/02 documented as of this encounter
--- OUTSIDE RECORDS SUMMARY | 2025-01-20 19:17 | XMS_ITS | Encounter Summary ---
Author Organization [facility] Address [address] [place] [address] Care Team Providers Care Corrective Therapist Name Role Phone Alfredo Macias MD Primary Care Provider +1- [phone] Encounter Details Date Type Department Care Team (Late st Contact Info) Description 07/06/2001 Outpatient Historical [facility] [address] [facility] [place] [address] Srinivasa Coates MD [address] [facility] [address] [place] [address] Social History Tobacco Use Types Packs/Day Years Used Date Smoking Tobacco: Never Assessed Comments Unknown Sex and Gender Information Value Date Recorded Sex Assigned at Not on file Legal Sex Female 3:54 AM DENTAL HYGIENE INSTRUCTOR Gender Identity Not on file Sexual Orientation Not on file documented as of this encounter Plan of Treatment Not on file documented as of this encounter Visit Diagnoses Not on filedocumented in this encounter Care Teams Corrective Therapist Relationship Specialty Start Date End Date Alfredo Macias MD PCP - General 09/18/02 documented as of this encounter
--- OUTSIDE RECORDS SUMMARY | 2025-01-20 19:17 | XMS_ITS | Encounter Summary ---
Author Organization [facility] Address 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
--- OUTSIDE RECORDS SUMMARY | 2025-01-20 19:17 | XMS_ITS | Encounter Summary ---
Author Organization [facility] Address [address] [place] [address] Care Team Providers Care Mds Rn Name Role Phone Alfredo Macias MD Primary Care Provider +1- [phone] Encounter Details Date Type Department Care Team (Latest Contact Info) Description 07/06/2001 Inpatient Historical [facility] PATIENT IN A BED Srinivasa Coates MD [address] [facility] [address] [place] [address] Previous delivery, delivered, with or without mention of antepartum condition (Primary Dx) Social History Tobacco Use Types Packs/Day Years Used Date Smoking Tobacco: Never Assessed Comments Unknown Sex and Gender Information Value Date Recorded Sex Assigned at Not on file Legal Sex Female 3:54 AM HEADER UP Gender Identity Not on file Sexual Orientation Not on file documented as of this encounter Plan of Treatment Not on file documented as of this encounter Visit Diagnoses Diagnosis Previous delivery, delivered, with or without mention of antepartum condition- Primary documented in this encounter Care Teams Mds Rn Relationship Specialty Start Date End Date Alfredo Macias MD PCP - General 09/18/02 documented as of this encounter
--- OUTSIDE RECORDS SUMMARY | 2025-01-20 19:18 | XMS_ITS | Encounter Summary ---
Author Organization [facility] Address [address] [place] [address] Care Team Providers Care Tnt Line Supervisor Name Role Phone Alfredo Macias MD Primary Care Provider +1- [phone] Encounter Details Date Type Department Care Team (Late st Contact Info) Description 08/24/2003 Outpatient Historical [facility] [address] [place] [address] [place] [address] [place] [address] Social History Tobacco Use Types Packs/Day Years Used Date Smoking Tobacco: Never Assessed Comments Unknown Sex and Gender Information Value Date Recorded Sex Assigned at Not on file Legal Sex Female 3:54 AM SAP CONSULTANT Gender Identity Not on file Sexual Orientation Not on file documented as of this encounter Plan of Treatment Not on file documented as of this encounter Visit Diagnoses Not on filedocumented in this encounter Care Teams Tnt Line Supervisor Relationship Specialty Start Date End Date Alfredo Macias MD PCP - General 09/18/02 documented as of this encounter
--- OUTSIDE RECORDS SUMMARY | 2025-01-20 19:18 | XMS_ITS | Encounter Summary ---
Author Organization [facility] Address 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
--- OUTSIDE RECORDS SUMMARY | 2025-01-20 19:18 | XMS_ITS | Encounter Summary ---
Author Organization [facility] Address [address] [place] [address] Care Team Providers Care Digital Printer Name Role Phone Alfredo Macias MD Primary Care Provider +1- [phone] Encounter Details Date Type Department Care Team (Latest Contact Info) Description 08/05/1999 Outpatient Historical [facility] ABIMAEL Price, Luis E Garza MD [address] [place], [place] [id number] Supervision of other normal (Primary Dx) Social History Tobacco Use Types Packs/Day Years Used Date Smoking Tobacco: Never Assessed Comments Unknown Sex and Gender Information Value Date Recorded Sex Assigned at Not on file Legal Sex Female 3:54 AM 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
--- OUTSIDE RECORDS SUMMARY | 2025-01-20 19:18 | XMS_ITS | Encounter Summary ---
Author Organization [facility] Address [address] [place] [address] Care Team Providers Care Quantitative Analyst Marketing Name Role Phone Alfredo Macias MD Primary Care Provider +1- [phone] Encounter Details Date Type Department Care Team (Late st Contact Info) Description 02/16/1999 Outpatient Historical [facility] Srinivasa Phillips Supervision of other normal (Primary Dx) Social History Tobacco Use Types Packs/Day Years Used Date Smoking Tobacco: Never Assessed Comments Unknown Sex and Gender Information Value Date Recorded Sex Assigned at Not on file Legal Sex Female 3:54 AM GROCERY CLERK MARKING Gender Identity Not on file Sexual Orientation Not on file documented as of this encounter Plan of Treatment Not on file documented as of this encounter Visit Diagnoses Diagnosis Supervision of other normal - Primary documented in this encounter Care Teams Quantitative Analyst Marketing Relationship Specialty Start Date End Date Alfredo Macias MD PCP - General 09/18/02 documented as of this encounter
--- OUTSIDE RECORDS SUMMARY | 2025-01-20 19:18 | XMS_ITS | Encounter Summary ---
Author Organization [facility] Address [address] [place] [address] Care Team Providers Care Splitter Hand Name Role Phone Alfredo Macias MD Primary Care Provider +1- [phone] Encounter Details Date Type Department Care Team (Late st Contact Info) Description 09/25/2002 Outpatient Historical [facility] [address] [place] [address] Srinivasa Phillips Social History Tobacco Use Types Packs/Day Years Used Date Smoking Tobacco: Never Assessed Comments Unknown Sex and Gender Information Value Date Recorded Sex Assigned at Not on file Legal Sex Female 3:54 AM CARE MANAGEMENT ASSISTANT Gender Identity Not on file Sexual Orientation Not on file documented as of this encounter Plan of Treatment Not on file documented as of this encounter Visit Diagnoses Not on filedocumented in this encounter Care Teams Splitter Hand Relationship Specialty Start Date End Date Alfredo Macias MD PCP - General 09/18/02 documented as of this encounter
--- OUTSIDE RECORDS SUMMARY | 2025-01-20 19:18 | XMS_ITS | Encounter Summary ---
Author Organization [facility] Address 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
--- OUTSIDE RECORDS SUMMARY | 2025-01-20 19:18 | XMS_ITS | Encounter Summary ---
Author Organization [facility] Address [address] [place] [address] Care Team Providers Care Gas Turbine Mechanic Name Role Phone Alfredo Macias MD Primary Care Provider +1- [phone] Encounter Details Date Type Department Care Team (Late st Contact Info) Description 02/11/1999 Outpatient Historical [facility] Srinivasa Phillips Social History Tobacco Use Types Packs/Day Years Used Date Smoking Tobacco: Never Assessed Comments Unknown Sex and Gender Information Value Date Recorded Sex Assigned at Not on file Legal Sex Female 3:54 AM SCREEN TENDER Gender Identity Not on file Sexual Orientation Not on file documented as of this encounter Plan of Treatment Not on file documented as of this encounter Visit Diagnoses Not on filedocumented in this encounter Care Teams Gas Turbine Mechanic Relationship Specialty Start Date End Date Alfredo Macias MD PCP - General 09/18/02 documented as of this encounter
--- OUTSIDE RECORDS SUMMARY | 2025-01-20 19:18 | XMS_ITS | Encounter Summary ---
Author Organization [facility] Address [address] [place] [address] Care Team Providers Care Hematology Technologist Name Role Phone Alfredo Macias MD Primary Care Provider +1- [phone] Encounter Details Date Type Department Care Team (Latest Contact Info) Description 08/24/1999 Outpatient Historical [facility] Srinivasa Phillips Supervision of other normal (Primary Dx) Social History Tobacco Use Types Packs/Day Years Used Date Smoking Tobacco: Never Assessed Comments Unknown Sex and Gender Information Value Date Recorded Sex Assigned at Not on file Legal Sex Female 3:54 AM WARPER FIXER Gender Identity Not on file Sexual Orientation Not on file documented as of this encounter Plan of Treatment Not on file documented as of this encounter Visit Diagnoses Diagnosis Supervision of other normal - Primary documented in this encounter Care Teams Hematology Technologist Relationship Specialty Start Date End Date Alfredo Macias MD PCP - General 09/18/02 documented as of this encounter
--- OUTSIDE RECORDS SUMMARY | 2025-01-20 19:18 | XMS_ITS | Encounter Summary ---
Author Organization [facility] Address [address] [place] [address] Care Team Providers Care Safe And Vault Mechanic Name Role Phone Alfredo Macias MD Primary Care Provider +1- [phone] Encounter Details Date Type Department Care Team (Late st Contact Info) Description 09/08/2004 Outpatient Historical HIS [facility] Memo Prescott MD NO ADDRESS ON FILE ROUTINE BEATER WORKER HELPER EXAMINATION (Primary Dx) Social History Tobacco Use Types Packs/Day Years Used Date Smoking Tobacco: Never Assessed Comments Unknown Sex and Gender Information Value Date Recorded Sex Assigned at Not on file Legal Sex Female 3:54 AM DATA INTEGRITY CONSULTANT Gender Identity Not on file Sexual Orientation Not on file documented as of this encounter Plan of Treatment Not on file documented as of this encounter Visit Diagnoses Diagnosis Routine gynecological examination- Primary documented in this encounter Care Teams Safe And Vault Mechanic Relationship Specialty Start Date End Date Alfredo Macias MD PCP - General 09/18/02 documented as of this encounter
--- OUTSIDE RECORDS SUMMARY | 2025-01-20 19:18 | XMS_ITS | Encounter Summary ---
Author Organization [facility] Address 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
--- OUTSIDE RECORDS SUMMARY | 2025-01-20 19:18 | XMS_ITS | Encounter Summary ---
Author Organization [facility] Address 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
--- OUTSIDE RECORDS SUMMARY | 2025-01-20 19:18 | XMS_ITS | Clinical Summary ---
Author Organization [facility] Address [address] [place] [address] Phone Care Team Providers Care Survey Field Technician Name Role Phone Alfredo Macias MD Primary Care Provider +1- [phone] Encounters Date Type Department Care Team Description 01/03/2025 External Device Data STL ABSTRACTION Provider, Abstract 12/27/2024 External Device Data STL ABSTRACTION Provider, Abstract 12/26/2024 External Device Data STL ABSTRACTION Provider, Abstract 12/23/2024 External Device Data STL ABSTRACTION Provider, Abstract 12/22/2024 External Device Data STL ABSTRACTION Provider, Abstract 12/20/2024 External Device Data STL ABSTRACTION Provider, Abstract 12/06/2024 External Device Data STL ABSTRACTION Provider, Abstract 11/08/2024 External Device Data STL ABSTRACTION Provider, Abstract 11/08/2024 External Device Data STL ABSTRACTION Provider, Abstract 10/31/2024 External Device Data STL ABSTRACTION Provider, Abstract from Last 3 Months Social History Tobacco Use Types Packs/Day Years Used Date Smoking Tobacco: Never Assessed Comments Unknown Sex and Gender Information Value Date Recorded Sex Assigned at Not on file 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 Gender Identity Not on file Sexual Orientation Not on file Plan of Treatment Health Maintenance Due Date Last Done Comments Pre-Diabetes and Diabetes Screening 1967 HEPATITIS B VACCINES (1 of 3 - 19+ 3-dose series) 1986 HPV/Cotest (21-29) 1988 HPV/Cotest (30-65) 1997 FIT-DNA Q 3 years 2012 FIT/FOBT Q 1 year 2012 Flex Sig/CT Colonography Q 5 years 2012 ZOSTER VACCINE (2 of 2) 07/13/2022 05/18/2022 DTAP/TDAP/TD VACCINES (2 - Td or Tdap) 05/23/2023 05/23/2013, 10/18/2005 INFLUENZA VACCINE (#1) 2024 09/03/2014 COVID-19 Vaccine (3 - season) 2024 04/18/2021, 03/23/2021 CERVICAL CANCER SCREENING 07/08/2024 PAP SMEAR 07/08/2024 07/08/2021 PAP SMEAR 07/08/2024 07/08/2021 Preventative Visit- Commercial 10/18/2024 05/18/2022, 02/06/2021, 10/26/2018, Additional history exists BREAST CANCER SCREENING 06/29/2025 06/29/20 24, 09/16/2022, 09/16/2022, Additional history exists COLORECTAL SCREENING 04/17/2031 04/17/2021, 04/17/20 Colorectal Cancer Screening 04/17/2031 PNEUMOCOCCAL VACCINE 0-49 YEARS Aged Out No longer eligible based on patient's age to complete this topic Procedures Procedure Name Priority Date/Time Associated Diagnosis Comments MAMMO 3D TODD SCREEN BILAT W OR WO CAD Routine 06/29/2024 11:32 AM CDT Visit for screening mammogram from Last 3 Months or Most Recently Relevant to Health Maintenance Results * MAMMO 3D TODD SCREEN BILAT W OR WO CAD (06/29/2024 11:32 AM CDT) Anatomical Region Laterality Modality Breast Bilateral Mammography 06/29/2024 11:3 3 AM CDT Addenda Addendum by Sisi Dumont MD on 07/03/2024 4:12 PM CDT The patient's prior mammograms dated 09/16/2022, 07/30/2021 and 12/01/2018 are now available for comparison. FINDINGS: No suspicious mass, suspicious microcalcifications, or architectural distortion is identified in either breast. Since the prior mammograms, there has been no significant interval change. Computer aided detection was used in the interpretation of this examination. IMPRESSION: No suspicious findings to suggest malignancy in either breast. Annual mammography is recommended. OVERALL FINAL ASSESSMENT: BI-RADS CATEGORY 1: Negative DICTATION LOCATION: [facility] Impressions 06/30/2024 9:59 AM CDT IMPRESSION: Incomplete examination. Comparison with prior imaging is necessary. OVERALL FINAL ASSESSMENT: BI-RADS CATEGORY 0 - incomplete, needs comparison to prior mammograms DICTATION LOCATION: [facility] Narrative 06/30/2024 9:59 AM CDT EXAMINATION: BILATERAL SCREENING DIGITAL MAMMOGRAPHY WITH TOMOSYNTHESIS AND CAD DATE: 06/29/2024 11:32 AM HISTORY: Routine screening mammography. COMPARISON: None available. TECHNIQUE: A bilateral screening mammogram was performed. Low-dose full-field digital breast tomosynthesis examination was performed with 2D and 3D acquisitions. Examination is read in conjunction with computer aided detection. BREAST COMPOSITION: The breasts are heterogeneously dense, which may obscure small masses. FINDINGS: [facility] Radiology will request previous outside facility mammograms for comparison. Once they are available, an addendum will be dictated. Anel Menezes MD MAMMO ORDERABLES Edited Resu lt - Final from Last 3 Months or Most Recently Relevant to Health Maintenance Insurance [facility] Care Teams Survey Field Technician Relationship Specialty Start Date End Date Alfredo Macias MD PCP - General 09/18/02
--- OUTSIDE RECORDS SUMMARY | 2025-01-20 19:18 | XMS_ITS | Encounter Summary ---
Author Organization [facility] Address 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
--- OUTSIDE RECORDS SUMMARY | 2025-01-20 19:18 | XMS_ITS | Encounter Summary ---
Author Organization [facility] Address 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
--- OUTSIDE RECORDS SUMMARY | 2025-01-20 19:18 | XMS_ITS | Encounter Summary ---
Author Organization [facility] Address 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
--- OUTSIDE RECORDS SUMMARY | 2025-01-20 19:18 | XMS_ITS | Encounter Summary ---
Author Organization [facility] Address 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
--- OUTSIDE RECORDS SUMMARY | 2025-01-20 19:18 | XMS_ITS | Encounter Summary ---
Author Organization [email or web address] Address 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
--- OUTSIDE RECORDS SUMMARY | 2025-01-20 19:18 | XMS_ITS | Encounter Summary ---
Author Organization [facility] Address 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
--- OUTSIDE RECORDS SUMMARY | 2025-01-20 19:18 | XMS_ITS | Encounter Summary ---
Author Organization [facility] Address 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
--- OUTSIDE RECORDS SUMMARY | 2025-01-20 19:18 | XMS_ITS | Encounter Summary ---
Author Organization [facility] Address 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
--- OUTSIDE RECORDS SUMMARY | 2025-01-20 19:18 | XMS_ITS | Encounter Summary ---
Author Organization [employer] [facility] Address 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
--- OUTSIDE RECORDS SUMMARY | 2025-01-20 19:18 | XMS_ITS | Encounter Summary ---
Author Organization [facility] Address 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
--- OUTSIDE RECORDS SUMMARY | 2025-01-20 19:18 | XMS_ITS | Encounter Summary ---
Author Organization [facility] Address 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
--- OUTSIDE RECORDS SUMMARY | 2025-01-20 19:18 | XMS_ITS | Encounter Summary ---
Author Organization [facility] Address 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
--- OUTSIDE RECORDS SUMMARY | 2025-01-20 19:18 | XMS_ITS | Clinical Summary ---
Author Organization [facility] Address [address] [place] [address] Care Team Providers Care Investment Consultant Name Role Phone Anel Menezes MD Primary Care Provider Nathan Melgarnatacorie DO Unavailable Source Comments [facility],non-owned Affiliates and Associated Physician Practices is amultiple site organization consisting of ambulatory clinics and hospital sitesin [place], [place], [place] and [place]. This disclosure is being madepursuant to the Care Everywhere program and may not contain all information available regarding this patient. Last updated 18.[facility] [employer] Allergies Active Allergy Reactions Criticality Noted Date Comments Amoxicillin Urticaria,Swelling Medium 01/05/2019 Ibuprofen Nausea and/or Vomiting 01/05/2019 Medications * Be aware that medications may not be up to date on this document. Alwaysverify current medications with the patient. Medication Sig Dispensed Refills Start Date End Date Status etonogestrel-ethiny l estradiol (NUVARING) 0.12-0.015 MG/24HR vaginal ringIndications:Men orrhagia,Irregular periods Remove ring after 4 weeks, followed by 1 week-rest, then insert new ring 3 Each 3 09/06/2012 Active Additional Information Patient not taking.Reported on 10/26/2018 fluconazole (DIFLUCAN) 150 MG tablet Take 1 tab today, take 2nd tab 3 days later if symptom persist 2 tablet 10/26/2018 Active Additional Information Patient not taking.Reported on 04/10/2019 fluconazole (DIFLUCAN) 150 MG tablet Take 1 tab today, take 2nd tab 3 days later if symptom persist 2 tablet 10/26/2018 Active Additional Information Patient not taking.Reported on 04/10/2019 estradiol (ESTRACE) 0.1 MG/GM vaginal cream Insert 1 g into the vagina once daily X 2 WEEK THEN 2 TIMES WEEKLY 42.5 g 11 10/26/2018 Active Additional Information Patient not taking.Reported on 04/10/2019 predniSONE (DELTASONE) 10 MG tablet Take 4 tablets daily for 4 days, take 3 tablets daily for 2 days, take 2 tablets daily for 2 days, then take 1 tablet daily for 2 days 28 tablet 01/05/2019 Active Additional Information Patient not taking.Reported on 04/10/2019 Active Problems Problem Noted Date Diagnosed Date Impaired fasting glucose 05/24/2013 Vitamin D deficiency 05/24/2013 Allergic rhinitis 05/23/2013 Irregular periods 01/26/2012 Menorrhagia 01/26/2012 Abdominal pain, generalized 11/14/2011 Pain in joint, pelvic region and thigh 2 Hypercholesteremia 02/11/2011 Encounter for routine gynecological examination 01/07/2011 Overview (07/18/2015): Screening for malignant neoplasm of cervix 12/17 Overview (07/18/2015): Breast screening 12/17/2009 Overview (07/18/2015): Eczema 12/17/2009 Immunizations Name Administration Dates Next Due TDAP (7yrs+) 05/23/2013 Family History Medical History Relation Name Comments Diabetes Father Hypertension Mother Cancer - Breast Neg Hx Relation Name Status Comments Brother 6 Alive Daughter 1 Alive Daughter 2 Alive Father Alive Maternal Grandfather Maternal Grandmother Mother Paternal Grandfather Paternal Grandmother Sister 4 Alive Son 1 Alive Son 2 Alive Social History Tobacco Use Types Packs/Day Years Used Date Smoking Tobacco: Never Smokeless Tobacco: Never Tobacco Cessation:Counseling Given: No Alcohol Use Standard Drinks/Week Comments No 0 (1 standard drink = 0.6 oz pur e alcohol) Sex and Gender Information Value Date Recorded Sex Assigned at Not on file Gender Identity Not on file Sexual Orientation Not on file Last Filed Vital Signs Vital Sign Reading Time Taken Comments Blood Pressure 120/82 05/19/2019 3:29 PM CDT Pulse 85 01/05/2019 9:00 AM CDT Temperature 37.2 C (98.9 F) 01/05/2019 9:00 AM CDT Respiratory Rate 18 01/05/2019 9:00 AM CDT Oxygen Saturation 95% 01/05/2019 9:00 AM CDT Inhaled Oxygen Concentration - - Weight 82.6 kg (182 lb) 05/19/2019 3:29 PM CDT Height 157.5 cm (5' 2 ) 05/19/2019 3:29 PM CDT Body Mass Index 33.29 05/19/2019 3:29 PM CDT Plan of Treatment Health Maintenance Due Date Last Done Comments COLOGUARD (AGES 45-75) - COLON CA SCREENING 1967 COLON MONITORING 1967 COLONOSCOPY - COLON CA SCREENING 1967 CT COLONOGRAPHY - COLON CA SCREENING 1967 Colorectal Cancer Screening 1967 FIT - COLON CA SCREENING 1967 FLEX SIG - COLON CA SCREENING 1967 HIV SCREENING 1982 HEPATITIS C SCREENING 08/13/1985 HEPATITIS B VACCINE (1 of 3 - 19+ 3-dose series) 1986 PNEUMOCOCCAL VACCINE 50+ (1 of 1 - PCV) 2017 ZOSTER VACCINE (1 of 2) 2017 SCREENING FOR DIABETES 10/26/2018 4, 05/09/2014, 05/23/2013, Additional history exists LIPID TESTING 05/09/2019 05/09/2014, 0803/2013, 02/07/2011 PAP SMEAR 10/26/2021 10/26/2018, 04/19, 01/14/2012, Additional history exists DTAP/TDAP/TD VACCINES (2 - Td or Tdap) 05/23/2023 05/23/2013 COVID-19 VACCINE (3 - season) 2024 04/18/2021, 03/23/2021 MAMMOGRAM 09/16/2024 09/16/2022, 07/18, 12/01/2018, Additional history exists DEPRESSION SCREENING 10/18/2024 INFLUENZA VACCINE (Season Ended) 2025 09/03/2014 HIB VACCINE Aged Out No longer eligi ble based on patient's age to complete this topic HPV VACCINE Aged Out No longer eligi ble based on patient's age to complete this topic MENINGOCOCCAL (Group B) VACCINE SHARED DECISION-MAKING Aged Out No longer eligible based on patient's age to complete this topic MENINGOCOCCAL GROUPS A/C/Y/W VACCINE Aged Out No longer eligible based on patient's age to complete this topic PNEUMOCOCCAL VACCINE Aged Out No long er eligible based on patient's age to complete this topic Procedures Procedure Name Priority Date/Time Associated Diagnosis Comments MAMMO BILAT SCREENING W TODD Routine 09/16/2022 3:57 PM MAIL MANAGER Visit for screening mammogram PAP LB HPV HR+LR Routine 10/26/2018 4:34 PM MAIL MANAGER Well woman exam COMPREHENSIVE METABOLIC PANEL Routine 05/09/2014 8:56 AM CDT Routine general medical examination at a health care facility Impaired Fasting Glucose Vitamin D deficiency Hypercholesteremia LIPID PROFILE Routine 05/09/2014 8:56 AM CDT Routine general medical examination at a health care facility Impaired Fasting Glucose Vitamin D deficiency Hypercholesteremia from Last 3 Months or Most Recently Relevant to Health Maintenance Results * MAMMO BILAT SCREENING W TODD (09/16/2022 3:57 PM MAIL MANAGER) Anatomical Region Laterality Modality Breast Bilateral Mammography 09/17/2022 9:10 AM MAIL MANAGER Narrative 09/17/2022 9:12 AM MAIL MANAGER EXAMINATION: DIGITAL MAMMO BILAT SCREENING W TODD DATE: 09/16/2022 Breast composition: Scattered fibroglandular densities Body of report: comparison exam from 09/04/2014, 10/07/2015, 10/14/2016, 11/26/2017, 12/01/2018, 07/30/2021 These images were interpreted with the aid of CAD. 3-D tomosynthesis was utilized in the interpretation of this exam. There are no spiculated lesions or areas of architectural distortion. No suspicious calcifications are seen. Compared to the prior exam, there has been no suspicious interval change. BI-RADS assessment category: Category one, negative. Recommendation: Return to annual mammograms, or earlier if clinically indicated. > Interpreting Provider: Maria Del Carmen Barriga MD on 09/17/2022 9:12 AM Anel Menezes MD MAMMO ORDERABL ES * PAP LB HPV HR+LR (10/26/2018 4:34 PM MAIL MANAGER) Diagnosis [facility] INSURANCE BILL Comment:NEGATIVE FOR INTRAEP ITHELIAL LESION AND MALIGNANCY. Specimen Adequacy [facility] INSURANCE BILL Comment: Satisfactory for evaluation. Endocervical and/or squamous metaplastic cells (endocervical component) are present. Clinician Provided ICD10 [facility] INSURANCE BILL Comment: Z01.419 N76.0 Performed by [facility] INSURANCE BILL Comment:Aime Olsen, Cyto technologist (ASCP) Comment . [facility] INSURANCE BILL Note [facility] INSURANCE BILL Comment: The Pap smear is a screening test designed to aid in the detection of premalignant and malignant conditions of the uterine cervix. It is not a diagnostic procedure and should not be used as the sole means of detecting cervical cancer. Both false-positive and false-negative reports do occur. . Human papillomavirus High Risk Negative Negative [facility] INSURANCE BILL Human papillomavirus Low Risk Negative Negative [facility] INSURANCE BILL Comment: These HPV tests detect thirteen high-risk types (16/18/31/33/35/ 39/45/51/52/56/58/59/68) and five low-risk types (6/11/42/43/44) without differentiation. . PART OF UTERINE CERVIX / Unknown 10/26/2018 4:34 PM MAIL MANAGER 10/27/2018 Narrative [facility] INSURANCE BILL - 11/01/2018 3:17 PM MAIL MANAGER No. of containers..01 ThinPrep Vial Resulting Agency Comment [address] [id number] Kylah Melgar DO LAB - PATHOLOGY/CYTO LOGY ORDERABLES [facility] INSURANCE BILL [address] [place] [address] * COMPREHENSIVE METABOLIC PANEL (05/09/2014 8:56 AM CDT) Glucose 96 65 - 99 mg/dL [facility] ACCOUNT BILL BUN 13 6 - 24 mg/dL [facility] ACCOUNT BILL Creatinine 0.61 0.57 - 1.00 mg/dL [facility] ACCOUNT BILL eGFR by MDRD 109 >59 mL/min/1.7 3 [facility] ACCOUNT BILL eGFR by MDRD 126 >59 mL/min/1.7 3 [facility] ACCOUNT BILL BUN/Creatinine Ratio 21 9 - 23 [facility] ACCOUNT BILL Sodium 138 134 - 144 mmol/L [facility] ACCOUNT BILL Potassium 4.2 3.5 - 5.2 mmol/L [facility] ACCOUNT BILL Chloride 103 97 - 108 mmol/L [facility] ACCOUNT BILL CO2 20 18 - 29 mmol/L [facility] ACCOUNT BILL Calcium 9.1 8.7 - 10.2 mg/dL [facility] ACCOUNT BILL Protein Total 7.0 6.0 - 8.5 g/dL [facility] ACCOUNT BILL Albumin 4.3 3.5 - 5.5 g/dL [facility] ACCOUNT BILL Globulin Total 2.7 1.5 - 4.5 g/dL [facility] ACCOUNT BILL Albumin/Globulin Ratio 1.6 1.1 - 2.5 [facility] ACCOUNT BILL Bilirubin Total 0.4 0.0 - 1.2 mg/dL [facility] ACCOUNT BILL Alkaline Phosphatase 84 39 - 117 IU/L [facility] ACCOUNT BILL AST 14 0 - 40 IU/L [facility] ACCOUNT BILL ALT 14 0 - 32 IU/L [facility] ACCOUNT BILL Blood specimen (specimen) BLOOD SPECIMEN / Unknown 05/09/2014 8:56 AM CDT 05/09/2014 1:10 PM CDT Narrative Resulting Agency Comment [facility] [address] [id number] Asuncion Montano MD LAB - CHEMISTRY LILO RAMÍREZ [facility] ACCOUNT BILL * (ABNORMAL) LIPID PROFILE (05/09/2014 8:56 AM CDT) Cholesterol 213(H) 100 - 199 mg/dL [facility] ACCOUNT BILL Triglycerides 92 0 - 149 mg/dL [facility] ACCOUNT BILL HDL Cholesterol 57 >39 mg/dL [facility] ACCOUNT BILL Comment: According to ATP-III Guidelines, HDL-C >59 mg/dL is considered a negative risk factor for CHD. VLDL Calculated 18 5 - 40 mg/dL [facility] ACCOUNT BILL LDL Calculated 138(H) 0 - 99 mg/dL [facility] ACCOUNT BILL Comment NOT NEEDED [facility] ACCOUNT BILL Comment:Ancillary determined the test is not needed Blood specimen (specimen) BLOOD SPECIMEN / Unknown 05/09/2014 8:56 AM CDT 05/09/2014 1:10 PM CDT Narrative Resulting Agency Comment [facility] [address] [id number] Asuncion Montano MD LAB - CHEMISTRY LILO RAMÍREZ [facility] ACCOUNT BILL from Last 3 Months or Most Recently Relevant to Health Maintenance Care Teams Investment Consultant Relationship Specialty Start Date End Date Anel Menezes MD PCP - General Family Medicine 09/04/14 Kylah Melgar DO [address] [id number] Obstetrics and Gynecology 12/02/18
--- OUTSIDE RECORDS SUMMARY | 2025-01-20 19:18 | XMS_ITS | Encounter Summary ---
Author Organization [facility] Address [address] [place] [address] Care Team Providers Care Lead Refiner Name Role Phone Alfredo Macias MD Primary Care Provider +1- [phone] Encounter Details Date Type Department Care Team (Late st Contact Info) Description 09/17/2003 Outpatient Historical [facility] [address] [place] [address] Memo Prescott MD NO ADDRESS ON FILE Social History Tobacco Use Types Packs/Day Years Used Date Smoking Tobacco: Never Assessed Comments Unknown Sex and Gender Information Value Date Recorded Sex Assigned at Not on file Legal Sex Female 3:54 AM BARGE MASTER Gender Identity Not on file Sexual Orientation Not on file documented as of this encounter Plan of Treatment Not on file documented as of this encounter Visit Diagnoses Not on filedocumented in this encounter Care Teams Lead Refiner Relationship Specialty Start Date End Date Alfredo Macias MD PCP - General 09/18/02 documented as of this encounter
--- OUTSIDE RECORDS SUMMARY | 2025-01-20 19:18 | XMS_ITS | Encounter Summary ---
Author Organization [facility] Address [address] [place] [address] Care Team Providers Care Teacher Preschool Name Role Phone Alfredo Macias MD Primary Care Provider +1- [phone] Encounter Details Date Type Department Care Team (Late st Contact Info) Description 06/06/2001 Outpatient Historical [facility] [address] [place] [address] Alfredo Macias MD [address] [place] [id number] Social History Tobacco Use Types Packs/Day Years Used Date Smoking Tobacco: Never Assessed Comments Unknown Sex and Gender Information Value Date Recorded Sex Assigned at Not on file Legal Sex Female 3:54 AM URGENT CARE NURSE PRACTITIONER Gender Identity Not on file Sexual Orientation Not on file documented as of this encounter Plan of Treatment Not on file documented as of this encounter Visit Diagnoses Not on filedocumented in this encounter Care Teams Teacher Preschool Relationship Specialty Start Date End Date Alfredo Macias MD PCP - General 09/18/02 documented as of this encounter
--- OUTSIDE RECORDS SUMMARY | 2025-01-20 19:18 | XMS_ITS | Encounter Summary ---
Author Organization [facility] Address [address] [place] [address] Care Team Providers Care Pulley Mortiser Operator Name Role Phone Alfredo Macias MD Primary Care Provider +1- [phone] Encounter Details Date Type Department Care Team (Late st Contact Info) Description 09/18/2002 Outpatient Historical [facility] Alfredo Wilde MD [address] [facility] [address] [place] [address] GYNECOLOGIC EXAMINATION (Primary Dx) Social History Tobacco Use Types Packs/Day Years Used Date Smoking Tobacco: Never Assessed Comments Unknown Sex and Gender Information Value Date Recorded Sex Assigned at Not on file Legal Sex Female 3:54 AM MANAGER SHELL Gender Identity Not on file Sexual Orientation Not on file documented as of this encounter Plan of Treatment Not on file documented as of this encounter Visit Diagnoses Diagnosis Gynecological examination- Primary documented in this encounter Care Teams Pulley Mortiser Operator Relationship Specialty Start Date End Date Alfredo Macias MD PCP - General 09/18/02 documented as of this encounter
--- OUTSIDE RECORDS SUMMARY | 2025-01-20 19:18 | XMS_ITS | Encounter Summary ---
Author Organization [employer] [facility] Address [address] [place] [address] Care Team Providers Care Ota Name Role Phone Alfredo Macias MD Primary Care Provider +1- [phone] Encounter Details Date Type Department Care Team (Late st Contact Info) Description 02/28/1999 Outpatient Historical [facility] Srinivasa Vaughn MD [address] [facility] [address] [place] [address] Er, Authorized P NO ADDRESS ON FILE Complete spontaneous without mention of complication (Primary Dx) Social History Tobacco Use Types Packs/Day Years Used Date Smoking Tobacco: Never Assessed Comments Unknown Sex and Gender Information Value Date Recorded Sex Assigned at Not on file Legal Sex Female 3:54 AM RECORD CHANGER Gender Identity Not on file Sexual Orientation Not on file documented as of this encounter Plan of Treatment Not on file documented as of this encounter Visit Diagnoses Diagnosis Complete spontaneous without mention of complication- Primary documented in this encounter Care Teams Ota Relationship Specialty Start Date End Date Alfredo Macias MD PCP - General 09/18/02 documented as of this encounter
--- OUTSIDE RECORDS SUMMARY | 2025-01-20 19:18 | XMS_ITS | Encounter Summary ---
Author Organization [facility] Address [address] [place] [address] Care Team Providers Care Forensic Identification Specialist Name Role Phone Alfredo Macias MD Primary Care Provider +1- [phone] Encounter Details Date Type Department Care Team (Latest Contact Info) Description 10/15/2005 Outpatient Historical [facility] Diallo Ca MD [address] [place] [address] SCREENING MAMM-MAILG NEOPL NEC (Primary Dx) Social History Tobacco Use Types Packs/Day Years Used Date Smoking Tobacco: Never Assessed Comments Unknown Sex and Gender Information Value Date Recorded Sex Assigned at Not on file Legal Sex Female 3:54 AM DIRECTOR OF WOMEN'S SERVICES Gender Identity Not on file Sexual Orientation Not on file documented as of this encounter Plan of Treatment Not on file documented as of this encounter Visit Diagnoses Diagnosis Other screening mammogram- Primary documented in this encounter Care Teams Forensic Identification Specialist Relationship Specialty Start Date End Date Alfredo Macias MD PCP - General 09/18/02 documented as of this encounter
--- OUTSIDE RECORDS SUMMARY | 2025-01-20 19:18 | XMS_ITS | Encounter Summary ---
Author Organization [employer] [facility] Address [address] [place] [address] Care Team Providers Care Emergency Vehicle Operations Instructor Name Role Phone Alfredo Macias MD Primary Care Provider +1- [phone] Encounter Details Date Type Department Care Team (Late st Contact Info) Description 09/17/2003 Outpatient Historical [facility] Memo Prescott MD NO ADDRESS ON FILE CONTRACEPT SURVEILL NEC (Primary Dx) Social History Tobacco Use Types Packs/Day Years Used Date Smoking Tobacco: Never Assessed Comments Unknown Sex and Gender Information Value Date Recorded Sex Assigned at Not on file Legal Sex Female 3:54 AM DEPOSITING MACHINE OPERATOR Gender Identity Not on file Sexual Orientation Not on file documented as of this encounter Plan of Treatment Not on file documented as of this encounter Visit Diagnoses Diagnosis Surveillance of other previously prescribed contraceptive method- Primary documented in this encounter Care Teams Emergency Vehicle Operations Instructor Relationship Specialty Start Date End Date Alfredo Macias MD PCP - General 09/18/02 documented as of this encounter
--- OUTSIDE RECORDS SUMMARY | 2025-01-20 19:18 | XMS_ITS | Encounter Summary ---
Author Organization [facility] Address [address] [place] [address] Care Team Providers Care Activity Therapist Name Role Phone Alfredo Macias MD Primary Care Provider +1- [phone] Encounter Details Date Type Department Care Team (Late st Contact Info) Description 09/18/2002 Outpatient Historical [facility] Srinivasa Phillips GYNECOLOGIC EXAMINATION (Primary Dx) Social History Tobacco Use Types Packs/Day Years Used Date Smoking Tobacco: Never Assessed Comments Unknown Sex and Gender Information Value Date Recorded Sex Assigned at Not on file Legal Sex Female 3:54 AM SUGARCANE RESEARCH TECHNICIAN Gender Identity Not on file Sexual Orientation Not on file documented as of this encounter Plan of Treatment Not on file documented as of this encounter Visit Diagnoses Diagnosis Gynecological examination- Primary documented in this encounter Care Teams Activity Therapist Relationship Specialty Start Date End Date Alfredo Macias MD PCP - General 09/18/02 documented as of this encounter
--- OUTSIDE RECORDS SUMMARY | 2025-01-20 19:18 | XMS_ITS | Encounter Summary ---
Author Organization [facility] Address [address] [place] [address] Care Team Providers Care Pre Parole Counseling Aide Name Role Phone Alfredo Macias MD Primary Care Provider +1- [phone] Encounter Details Date Type Department Care Team (Late st Contact Info) Description 09/21/2002 Outpatient Historical [facility] [address] [place] [address] Samantha Kolb MD [address] [place] [address] Social History Tobacco Use Types Packs/Day Years Used Date Smoking Tobacco: Never Assessed Comments Unknown Sex and Gender Information Value Date Recorded Sex Assigned at Not on file Legal Sex Female 3:54 AM NICKING MACHINE OPERATOR Gender Identity Not on file Sexual Orientation Not on file documented as of this encounter Plan of Treatment Not on file documented as of this encounter Visit Diagnoses Not on filedocumented in this encounter Care Teams Pre Parole Counseling Aide Relationship Specialty Start Date End Date Alfredo Macias MD PCP - General 09/18/02 documented as of this encounter
--- OUTSIDE RECORDS SUMMARY | 2025-01-20 19:18 | XMS_ITS | Encounter Summary ---
Author Organization [facility] Address [address] [place] [address] Care Team Providers Care Restaurant Kitchen And Service Manager Name Role Phone Alfredo Macias MD Primary Care Provider +1- [phone] Encounter Details Date Type Department Care Team (Late st Contact Info) Description 07/17/1999 Outpatient Historical [facility] Srinivasa Phillips Abdominal or pelvic swelling, mass or lump, unspecified site (Primary Dx) Social History Tobacco Use Types Packs/Day Years Used Date Smoking Tobacco: Never Assessed Comments Unknown Sex and Gender Information Value Date Recorded Sex Assigned at Not on file Legal Sex Female 3:54 AM HEAD ANIMAL KEEPER Gender Identity Not on file Sexual Orientation Not on file documented as of this encounter Plan of Treatment Not on file documented as of this encounter Visit Diagnoses Diagnosis Abdominal or pelvic swelling, mass or lump, unspecified site- Primary documented in this encounter Care Teams Restaurant Kitchen And Service Manager Relationship Specialty Start Date End Date Alfredo Macias MD PCP - General 09/18/02 documented as of this encounter
--- OUTSIDE RECORDS SUMMARY | 2025-01-20 19:18 | XMS_ITS | Encounter Summary ---
Author Organization [facility] Address [address] [place] [address] Care Team Providers Care Solar Sales Rep Name Role Phone Alfredo Macias MD Primary Care Provider [phone]- [phone] Encounter Details Date Type Department Care Team (Late st Contact Info) Description 08/15/2001 Outpatient Historical [facility] Alfredo Macias MD [address] [place] [address] ROUT POSTPART FOLLOW-UP (Primary Dx) Social History Tobacco Use Types Packs/Day Years Used Date Smoking Tobacco: Never Assessed Comments Unknown Sex and Gender Information Value Date Recorded Sex Assigned at Not on file Legal Sex Female 3:54 AM GANG SAWYER Gender Identity Not on file Sexual Orientation Not on file documented as of this encounter Plan of Treatment Not on file documented as of this encounter Visit Diagnoses Diagnosis Routine follow-up- Primary documented in this encounter Care Teams Solar Sales Rep Relationship Specialty Start Date End Date Alfredo Macias MD PCP - General 09/18/02 documented as of this encounter
--- OUTSIDE RECORDS SUMMARY | 2025-01-20 19:18 | XMS_ITS | Encounter Summary ---
Author Organization [facility] Address [address] [place] [address] Care Team Providers Care Waiter/Waitress Buffet Name Role Phone Alfredo Macias MD Primary Care Provider +1- [phone] Encounter Details Date Type Department Care Team (Late st Contact Info) Description 10/01/2003 Outpatient Historical [facility] [address] [place] [address] Memo Prescott MD NO ADDRESS ON FILE Social History Tobacco Use Types Packs/Day Years Used Date Smoking Tobacco: Never Assessed Comments Unknown Sex and Gender Information Value Date Recorded Sex Assigned at Not on file Legal Sex Female 3:54 AM BREAD DUMPER Gender Identity Not on file Sexual Orientation Not on file documented as of this encounter Plan of Treatment Not on file documented as of this encounter Visit Diagnoses Not on filedocumented in this encounter Care Teams Waiter/Waitress Buffet Relationship Specialty Start Date End Date Alfredo Macias MD PCP - General 09/18/02 documented as of this encounter
--- OUTSIDE RECORDS SUMMARY | 2025-01-20 19:18 | XMS_ITS | Encounter Summary ---
Author Organization [facility] Address 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
--- OUTSIDE RECORDS SUMMARY | 2025-01-20 19:18 | XMS_ITS | Encounter Summary ---
Author Organization [employer] [facility] Address 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
--- OUTSIDE RECORDS SUMMARY | 2025-01-20 19:18 | XMS_ITS | Encounter Summary ---
Author Organization [facility] Address 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
--- OUTSIDE RECORDS SUMMARY | 2025-01-20 19:18 | XMS_ITS | Encounter Summary ---
Author Organization [facility] Address [address] [place] [address] Care Team Providers Care Top Precipitator Operator Helper Name Role Phone Alfredo Macias MD Primary Care Provider +1- [phone] Encounter Details Date Type Department Care Team (Late st Contact Info) Description 01/29/2003 Outpatient Historical [facility] [address] [place] [address] Alfredo Macias MD [address] [place] [id number] Social History Tobacco Use Types Packs/Day Years Used Date Smoking Tobacco: Never Assessed Comments Unknown Sex and Gender Information Value Date Recorded Sex Assigned at Not on file 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
--- OUTSIDE RECORDS SUMMARY | 2025-01-20 19:18 | XMS_ITS | Encounter Summary ---
Author Organization [facility] Address [address] [place] [address] Phone Care Team Providers Care Machine Specialist Name Role Phone Anel Menezes MD Primary Care Provider Guillaume Barroso Unavailable [phone] Altaf Sosa MD Unavailable [phone] Encounter Details Date Type Department Care Team (Late st Contact Info) Description 02/16/2018 Orders Only [facility] ProviderKayleigh MD [address] [place] [address] Social History Tobacco Use Types Packs/Day Years Used Date Smoking Tobacco: Never Smokeless Tobacco: Never Comments Unknown Sex and Gender Information Value Date Recorded Sex Assigned at Not on file 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 Historical Provider LAB BLOOD ORDERABLES Kizzy l Result documented in this encounter Visit Diagnoses Not on filedocumented in this encounter Care Teams Machine Specialist Relationship Specialty Start Date End Date Anel Menezes MD [address] [facility] [place] [address] PCP - General 01/15/17 Guillaume Barroso PA [address] [place], [place] [id number] Physician Field Operations Farm Manager Neurosurgery 10/09/22 Altaf Sosa MD [address] [id number] Consulting Physician Neurosurgery 10/09/22 documented as of this encounter
--- OUTSIDE RECORDS SUMMARY | 2025-01-20 19:18 | XMS_ITS | Encounter Summary ---
Author Organization [employer] [facility] Address [address] [place] [address] Care Team Providers Care Change Management Consultant Name Role Phone Alfredo Macias MD Primary Care Provider [phone]- [phone] Encounter Details Date Type Department Care Team (Late st Contact Info) Description 05/23/2001 Outpatient Historical [facility] Alfredo Macias MD [address] [facility] [address] [place] [address] Supervision of other normal (Primary Dx) Social History Tobacco Use Types Packs/Day Years Used Date Smoking Tobacco: Never Assessed Comments Unknown Sex and Gender Information Value Date Recorded Sex Assigned at Not on file 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
--- OUTSIDE RECORDS SUMMARY | 2025-01-20 19:18 | XMS_ITS | Encounter Summary ---
Author Organization [facility] Address 

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
[2025-01-20] MEDS: IBUPROFEN 400 MG TABLET 800 MG PO (19:58)
[2025-01-20] MEDS: ACETAMINOPHEN 500 MG TABLET 1000 MG PO (19:58)
== END 2025-01-20 22:19 | disposition home or self-care (01) ==
PROVIDERS: Emergency Provider Physician Assistant
DX: S22.22XA Fracture of body of sternum, initial encounter for closed fracture (principal); S22.32XA Fracture of one rib, left side, initial encounter for closed fracture; V43.62XA Car passenger injured in collision with other type car in traffic accident, initial encounter; E04.1 Nontoxic single thyroid nodule
CPT/HCPCS: 71250; 99284; A9270